=== PATIENT | female | born 1955 | race Caucasian/White ===

== ENCOUNTER 2016-07-09 16:07 | Observation (INO) | payer OTHER ==
[~2016-07-09] VITALS: Ht 162.6 cm; Wt 68.0 kg
--- NOTE | ~2016-07-09 | CST ---
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 Risks, complications and alternative treatments were reviewed. Written consent was obtained. Medications Reviewed with Patient prior to Procedure. Procedure Procedure Type: Nuclear Stress Test:Pharmacological, Lexiscan Procedure Start time: 07/10/2016 08:00 Indications: Chest pain, Chest pressure and History of CAD. Risk Factors The patient risk factors include:prior PCI on 05/10/2016;former tobacco use, treated hypercholesterolemia, treated hypertension, family history of premature CAD, chronic lung disease and prior MT . Conclusions Summary Perfusion Images: The overall quality of the study is good. Left ventricular cavity size is normal on stress and rest images. There is no evidence of abnormal lung activity. The right ventricle is not visualized and cannot be assessed. Stress imaging reveals large sized area of severe decreased isotope uptake in the inferior wall of the left ventricle. Rest imaging reveals large sized area of severe decreased isotope uptake in the inferior wall. Gated imaging reveals akinesis of the inferior wall. Impression ECG portion of the stress test is clinically negative for ischemia by diagnostic criteria. Myocardial perfusion imaging is abnormal. Images reveal a large sized area of severe inferior wall infarct. Gated wall motion is abnormal with LVEF 55%. This is a low to intermediate risk stress test. There are no previous studies for comparison. . Stress Protocols Resting ECG Normal sinus rhythm. Resting HR:66 bpm Resting BP:142/80 mmHg Stress Protocol:Pharmacologic Predicted HR: 160 bpm Test duration: 06:00 min Reason for termination:Infusion complete ECG Findings No ECG changes suggestive of ischemia. Arrhythmias Occasional PVC's. Symptoms Leg pain led to early termination of treadmill. Switched to lexiscan Complications Procedure complication: None. Stress Interpretation Appropriate hemodynamic response to Lexiscan. No significant ST-T wave changes with Lexiscan. ECG portion is negative for ischemia by diagnostic criteria. Imaging Results Summed scores - Summed stress score: 19 - Summed rest score: 16 - Summed difference score: 3 Stress ejection Ejection fraction:55 % EDV :128 ml ESV :57 ml Stroke volume :71 ml LV mass :145 gr Imaging Protocols Rest Stress Isotope:Tc99m Myoview IV Isotope: Tc99m Myoview IV Isotope dose:10.7 mCi Isotope dose:31 mCi Date:07/10/2016 06:30 Date:07/10/2016 08:00 Technique: SPECT Technique: Gated Supine SPECT Supine IV remains in place after procedure. Scan Time:45-60 minutes post Scan Time:15-30 minutes post injection injection Procedure Medications - Regadenoson (Lexiscan) 0.4 mg IV over 10-15 sec. I.V. 0.4 . Medications administered per verbal order and read back to physician prior to administration. Medical History Admission Data Admission date: 07/09/2016 Admission Time: 16:07 Hospital Status: Inpatient. Signatures
--- NOTE | ~2016-07-09 | ECH ---
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 Contractility of all other segments appeared normal. Summary Parasternal images fair quality, apical and subcostal images good quality. The estimated left ventricular ejection fraction is 55-60%. Mild segmental wall motion abnormalities, unchanged form 05/19/16. Mild left ventricular hypertrophy. Diastolic assessment reveals Grade I diastolic dysfunction. Mild mitral regurgitation by color Doppler. There is trivial aortic regurgitation by color Doppler. The aortic root appears mildly dilated. The maximum diameter measures 3.2 cm. Recommendation The patient will be given the results of this study by the physician who ordered the exam. Procedure Type of Study TTE procedure Procedure Date Date: 07/10/2016 Start: 09:55 AM Technical Quality: Fair due to poor acoustical window. Indications:Chest pain and Coronary artery disease. Appropriate Use Criteria: 9 Height: 64 inches Weight: 152 pounds BSA: 1.74 m Rhythm: Within normal limits HR: 79 bpm BP: 115/77 mmHg M-Mode/2D Measurements LV Diastolic Dimension: 4.9 cm LV Systolic Dimension: 3.89 cm LV Septum Diastolic: 1.07 cm LV PW Diastolic: 1.26 cm AO Root Dimension: 3.24 cm Cardiac Output: 3.55 l/min LA Dimension: 3.15 cm Cardiac Index: 2.04 l/min*m LA volume index: 20 ml/m LVOT: 1.55 cm RV Base: 2.4 cm LVOT VTI: 23.81 cm RV Mid: 1.7 cm LV Stroke volume: 44.9 ml RV Length: 6.5 cm LV Stroke volume index: 25.8 ml/m TAPSE: 2.2 cm Doppler Measurements AV Mean Gradient: 3.01 mmHg MV Peak E-Wave: 0.65 m/s LVOT Peak Velocity: 1.1 m/s MV Peak A-Wave: 1 m/s AV Area (Continuity):2.02 cm MV P1/2t: 70.1 msec MV Deceleration Time: 223.8 msec MV Area (PHT): 3.14 cm PV Peak Velocity: 0.65 m/s RA Area: 11.27 cm Findings Left Ventricle The left ventricle is normal in size . Mild left ventricular hypertrophy. Diastolic assessment reveals Grade I diastolic dysfunction. Right Ventricle Normal right ventricle structure and function. Left Atrium Normal left atrial size. Right Atrium Normal right atrial size. Mitral Valve Normal mitral valve structure and function. Mild mitral regurgitation by color Doppler. Aortic Valve Normal aortic valve structure and function. There is trivial aortic regurgitation by color Doppler. Tricuspid Valve Normal tricuspid valve structure and function. Pulmonic Valve The pulmonic valve is not well visualized. Pericardial Effusion No evidence of pericardial effusion. Miscellaneous The aortic root appears mildly dilated. The maximum diameter measures 3.2 cm. Pleural Effusion No evidence of pleural effusion. Contractility Score LV regional wall motion:(0-Non visualized 1-Normal 2-Hypokinesis 3-Akinesis 4-Dyskinesis 5-Aneurysm) Signature
[~2016-07-09 16:07] MED LIST: ASPIR 8181 MG PO; BRILINTA90 MG PO; COREG DPS6.25 MG PO; CRESTOR20 MG PO; DAILY MULTIPLE1 EAC1 PO; NITROSTAT0.4 MG SL; VASOTEC DPS5 MG PO
--- NOTE | 2016-07-10 08:13 | HP ---
ADMIT: 07/09/2016 RM/LOC: 410 [facility] MR#: [id number] [facility] [address] [place], [place] [address] ROBERT GOULD [address] [place] [address] History and Physical SEX: F AGE: 60 : 1955 DATE OF SERVICE: Ms. Gould is a pleasant 60-year-old white female, who presents to her local ER today with some chest pain. She started having it early this morning and late last night. She has a history of inferior ST-elevation NV. She said this pain is different than her NV pain. It does not involve her left arm, it is more midsternal and more like a pressure. The other pain that she experienced was more of a sharp pain. She does not note that there is anything that she does that makes it better or worse. She gets short of breath and diaphoretic when it occurs, she states. PAST MEDICAL HISTORY: 1. Includes ST-elevation NV with PCI to her RCA May 18, 2016. 2. Nonobstructive coronary disease of the rest arteries. 3. History of tobacco use. MEDICATIONS: Currently include: 1. Fish oil a day. 2. Aspirin 81 mg a day. 3. Brilinta 90 mg twice a day. 4. Crestor 20 mg a day. 5. Enalapril 2.5 mg a day. 6. Carvedilol 6.25 mg twice a day. 7. Nitroglycerin p.r.n. ALLERGIES: INCLUDES PENICILLIN. HER FAMILIAL HISTORY IS REVIEWED FROM THE H AND P ON MAY 18, 2016, AND UNCHANGED. SOCIAL HISTORY: Unchanged except that she is now a nonsmoker. She has not smoke since her NV. REVIEW OF SYSTEMS: A full 12-point review of systems was obtained and deemed to be negative except for pertinent dictated above in the HPI. PHYSICAL EXAMINATION: VITAL SIGNS: Her blood pressure is 149/88 with a pulse of 67 and regular, temp 96.8. Her weight today is 150 pounds. GENERAL: She is a pleasant, well-nourished, well-developed white female, in no acute distress. Alert and oriented x3. NECK: Shows brisk carotid upstrokes. No JVD or bruit. CHEST: Clear. HEART: Regular. ABDOMEN: Soft. EXTREMITIES: No cyanosis, clubbing, or edema. MUSCULOSKELETAL: Normal. NEUROLOGIC: Normal. SKIN: [place], warm, and dry. ADMIT: 07/09/2016 RM/LOC: 410 [facility] MR#: [id number] [id number] [address] [facility] [address] [place] [address] History and Physical SEX: F AGE: 60 : 1955 LABORATORY AND ANCILLARY DATA: from [facility], [place], operated by [facility] show white blood cell count 9.4, hemoglobin 13.8, platelet count is 325,000. Sodium is 141, potassium 3.8, chloride 107, CO2 of 26, BUN 9, creatinine 0.91, glucose of 113. Troponin was less than 0.05. CK-MB was less than 1. EKG shows insignificant ST or T-wave segment changes. She does have some Q waves in II, III, and aVF and some PVCs. Chest x-ray shows no cardiopulmonary abnormalities. ASSESSMENT AND PLAN: 1. Angina/chest pain. 2. Coronary artery disease. Recent PCI to her RCA. Reviewed images Dr. Ham verbally. He viewed the with Dr. Baron in person. He does not feel that these remaining lesions in her LAD are significant and her circumflex are insignificant. In his opinion they are more significant than the LAD lesions but certainly not to the point where need to be intervened on. He would recommend considering a stress test. We will go ahead and do that unless her enzymes become positive, then we will consider doing a repeat cardiac catheterization. We will trend her enzymes, start her on nitroglycerin drip as needed. Repeat labs in the morning. Get an echocardiogram. Frankie Gómez MD/ paris JOB #: [id number] CC: Thomas Gómez, Attending Physician Nitesh Dueñas, Family Physician
[2016-07-12] MEDS ORDERED: KRILL OIL 3001 EACH PO (11:18)
[2016-07-12] MEDS ORDERED: TYLENOL EXTRA500 M1 PO (11:19)
[2016-07-12] MEDS ORDERED: TEARS NATURAL D15 ML OU (11:19)
== END 2016-07-10 12:04 | disposition home or self-care (01) ==
LOC: 4PCU 16:07
PROVIDERS: ADMIT Internal Medicine
DX: R07.9 Chest pain, unspecified (principal); I25.10 Atherosclerotic heart disease of native coronary artery without angina pectoris; I25.2 Old myocardial infarction; Z79.82 Long term (current) use of aspirin; Z79.899 Other long term (current) drug therapy; Z88.0 Allergy status to penicillin